=== PATIENT | male | born 1950 | race Hispanic/Latino ===

== ENCOUNTER 2017-09-02 09:43 | Outpatient (CLI) | payer MEDICARE ==
--- NOTE | 2017-09-03 00:05 | XRay Report ---
FINAL REPORT PROCEDURE: XR BONE SURVEY METASTATIC TECHNIQUE: Radiographs of the axial and appendicular skeleton, including lateral skull, lateral cervical spine, AP ribs, AP thoracic spine, AP and lateral lumbar spine, AP pelvis, PA and lateral chest, and AP views of the long bones. HISTORY: MONOCLONAL GAMMOPATHY,TYPE 2 DIABETES MELLITUS,DISORDER OF KIDNEY COMPARISON: No prior studies are available for comparison. FINDINGS: Fracture(s): None. Osteoblastic lesions: None. Osteolytic lesions: None. Joint space(s): Narrowing of intervertebral disc space is noted involving lower cervical and mid thoracic levels with marginal osteophyte formation. Narrowing of bilateral acromioclavicular joint spaces is noted with moderate degree osteophyte formation. Soft tissues: Normal. Bone mineralization: Normal. Foreign bodies: None. IMPRESSION: No evidence of multiple myeloma or metastatic disease. 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
== END 2017-09-02 09:44 | disposition home or self-care (01) ==
LOC: SPVIMAG 09:43
PROVIDERS: ATTEND Internal Medicine Hematology & Oncology
DX: M19.012 Primary osteoarthritis, left shoulder (principal); M19.011 Primary osteoarthritis, right shoulder; M47.893 Other spondylosis, cervicothoracic region; M25.78 Osteophyte, vertebrae; N28.9 Disorder of kidney and ureter, unspecified; D47.2 Monoclonal gammopathy; E11.9 Type 2 diabetes mellitus without complications
CPT/HCPCS: 77074